=== PATIENT | male | born 2000 | race African-American/Black ===

== ENCOUNTER 2019-03-09 10:18 | Emergency (ER) | payer MEDICAID ==
[~2019-03-09] VITALS: Ht 188 cm; Wt 83.2 kg
[2019-03-09 10:23] VITALS: BP 128/74
[2019-03-09] MEDS ORDERED: DOXYCYCLINE 10100 MG PO ×2 (10:41→11:05)
[2019-03-09] MEDS ORDERED: OMNICEF 300MG300 MG PO ×2 (10:41→11:05)
[2019-03-09 10:58] VITALS: PULSE 86; TEMP 97.8
== END 2019-03-09 10:58 | disposition home or self-care (01) ==
LOC: COL.ER 10:18
DX: K62.89 Other specified diseases of anus and rectum (principal)
CPT/HCPCS: J0696

== ENCOUNTER 2023-03-05 13:03 | Emergency (ER) | payer SELFPAY ==
[~2023-03-05] VITALS: Ht 188 cm; Wt 86.4 kg
[~2023-03-05 13:03] MED LIST: AMOXICILLIN 8751 TAB PO; DOXYCYCLINE 10100 MG PO; OMNICEF 300MG300 MG PO
[2023-03-05 13:11] VITALS: TEMP 98.2
[2023-03-05 14:19] LABS: BASO % 0.3 % (0.0-2.0); EOS % 0.4 % (0.0-4.0); GRAN # 5.4 K/mm3 (1.4-6.5); HEMATOCRIT 41.8 % (42.0-52.0); HEMOGLOBIN 15.4 g/dl (13.5-18.0); LYMPH # 1.3 K/mm3 (1.2-3.4); MEAN CELL VOLUME 90 fl (80.0-100.0); MEAN CORPUSCULAR HEMOGLOBIN 33 pg (27-31); MEAN CORPUSCULAR HGB CONC 37 g/dl (33.0-37.0); MEAN PLATELET VOLUME 9.3 fl (7.4-10.4); MONO # 0.6 K/mm3 (0.1-0.6); PLATELET COUNT 221 K/mm3 (130-400); RED BLOOD COUNT 4.65 M/mm3 (4.20-5.60); REDCELL DISTRIBUTION WIDTH-CV 11.9 % (11.5-14.5)
[2023-03-05 14:55] LABS: ALBUMIN 3.8 gm/dL (3.5-5.0); BILIRUBIN,TOTAL 0.8 mg/dL (0.2-1.2); C-REACTIVE PROTEIN 6.88 mg/dL (0.00-0.50); CALCIUM 9.4 mg/dL (8.4-10.2); CREATININE, serum 0.85 mg/dL (0.72-1.25); POTASSIUM 3.5 mmol/L (3.5-4.5); TOTAL PROTEIN 7.6 gm/dL (6.2-8.1)
[2023-03-05 15:02] LABS: TROPONIN-I 0.013 ng/mL (0.00-0.033)
[2023-03-05] MEDS ORDERED: NAPROSYN500 MG PO (15:15)
[2023-03-05 15:31] VITALS: BP 130/73; PULSE 61
== END 2023-03-05 15:38 | disposition home or self-care (01) ==
LOC: COL.ER 13:03
PROVIDERS: Nurse Practitioner
DX: M94.0 Chondrocostal junction syndrome [Tietze] (principal); M25.512 Pain in left shoulder; F17.210 Nicotine dependence, cigarettes, uncomplicated